=== PATIENT | male | born 1955 | race Caucasian/White ===

== ENCOUNTER 2022-12-01 08:07 | Observation (INO) ==
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
--- NOTE | 2022-11-27 08:15 | History and Physical Report ---
CHIEF COMPLAINT: Right knee pain. HISTORY OF PRESENT ILLNESS: The patient is a 67-year-old gentleman referred by my partner, Dr. Chalo urban, for surgical treatment of his right knee. He has got a several-year history of increasing right k nee pain and discomfort and describes it has gotten worse over time. He does have a history of vascu lar [place] in [place] He had similar procedures performed on left si de in 2008. He has done well from that standpoint, but continued to be bothered by knee pain. He fisher s been through extensive conservative care including injections, which have become less successful ov er time. He has had more difficulty getting around doing things he would like to do. He would like to proceed with surgical management. Of note, the patient has been scheduled previously, but canceled due to elevated hemoglobin A1c level . This has now gone from 8.2 to 7.3 and has been medically optimized. PAST MEDICAL HISTORY: Significant for: 1. Hypertension. 2. Elevated cholesterol. 3. Diabetes x20 years. 4. Obesity, BMI 36. 5. Kidney stones. 6. Vascular stents. 7. Chronic kidney disease, stage III. PAST SURGICAL HISTORY: Includes, 1. Shoulder surgery. 2. Back surgery x2. 3. EGD. 4. Pilonidal cyst excision. 5. Nasal surgery. 6. Cataract surgery. 7. Colonoscopy. 8. Cystoscopy. 9. Oral surgery. 10. Eye surgery. 11. Bilateral lower extremity stents placed, left side 2008, right side 2014. ALLERGIES: SULFA. CURRENT MEDICATIONS: 1. Botox. 2. Tylenol with oxycodone. 3. Pioglitazone. 4. Ramipril. 5. Rybelsus. 6. Simvastatin. 7. Topiramate. 8. Hydrochlorothiazide. 9. Metformin. 10. Multivitamin. 11. Gabapentin. 12. Nexium. 13. Vitamin D3. 14. Baby aspirin. 15. B complex. 16. Valtrex. SOCIAL HISTORY: A 67-year-old male. He lives by himself. He is a traveling musician. He has got a n medical assistant ob gyn to help him to surgery. Two to four drinks per week. He smokes cigars. FAMILY HISTORY: Noncontributory. REVIEW OF SYSTEMS: Significant for diabetes under better control. No chest pain or shortness of darwin ath. No history of DVT or PE. Does have chronic vascular disease as well as stage III kidney diseas e. PHYSICAL EXAMINATION: GENERAL: Shows a pleasant middle-aged male. Looks to be in reasonably good health. HEENT: Benign. NECK: Supple. No lymphadenopathy. LUNGS: Clear to auscultation. HEART: Has a regular rate and rhythm. ABDOMEN: Soft, nontender, nondistended. EXTREMITIES: Grossly neurovascularly intact except as follows. Examination of the right knee reveals the patient ambulates with a bit of a limp. He has got varus a lignment to his knee. He is tender over the medial joint line. Small knee effusion. Range of motio n 5-120. No instability. A little stiffness with hip motion, but no pain. X-RAYS: X-rays of the right knee reveal advanced right knee medial compartment degenerative joint di sease. He has got complete loss of medial joint space. He has got a vascular graft proximally. A single pelvis film shows some fairly mild hip arthritis. ASSESSMENT: 1. A 67-year-old male with multiple medical comorbidities including diabetes, chronic kidney disease , vascular disease in his lower extremities. 2. Gastroesophageal reflux disease. 3. Obesity. 4. Elevated cholesterol. 5. Hypertension with advanced right knee degenerative joint disease. He has failed conservative mary sures. He was scheduled previously, but canceled due to his blood glucose levels. Under much better control now and A1c is down. He would like to proceed with surgical treatment. PLAN: We will take him to the operating room and do a right total knee replacement. The risks and b enefits of this procedure were explained. We will not likely use a tourniquet due to his vascular gr aft. The risks and benefits of procedure were explained. He understands and desires to proceed. In formed consent was obtained. We will have to be careful using NSAID use. We will use insulin sliding scale coverage. He is plann ing to be discharged to home using [facility] program. Job ID: [id number]
[~2022-12-01 08:07] MED LIST: ACETAMINOPHEN 500 MG TAB PO SCH; BUPIVACAINE 0.25% PF 30 ML VIAL ONE; BUPIVACAINE 0.5 % 5 MG/1 ML PF 10ML VIAL ONE; BUPIVACAINE LIPOSOME/PF 266 MG, BUPIVACAINE/EPINEPHRINE 50 ML, SODIUM CHLORIDE 0.9% PF ... INFIL SCH; CeleBREX 200 MG CAP PO SCH; FAMOTIDINE 20 MG TAB PO SCH; LR 500ML BOLUS, THEN 15ML/HR IV SCH; LR 60ML/HR IV SCH; METOCLOPRAMIDE HCL 10 MG TABLET PO SCH; Scopolamine 1 MG TDSY TD SCH; TRANEXAMIC ACID 1,000 MG **IV Intra-op IV SCH; ceFAZolin 2000MG 2,000 MG/15 ML SYR IV SCH
[2022-12-01] MEDS ORDERED: ePHEDrine sulfate 50 MG/ML AMP IV PRN (09:47)
[2022-12-01] MEDS ORDERED: ATROPINE SULFATE 0.1 MG/ML 10ML SYR IV PRN (09:47)
[2022-12-01] MEDS ORDERED: fentaNYL citrate PF 100 MCG/2 ML VIAL IV PRN (09:47)
[2022-12-01] MEDS ORDERED: ONDANSETRON INJ 2 MG/ML 2 ML VIAL IV PRN ×2 (09:47→14:15)
[2022-12-01] MEDS ORDERED: PROPOFOL IV EMULSION 10 MG/ML 20 ML VIAL IV ONE ×3 (10:09)
[2022-12-01] MEDS ORDERED: ONDANSETRON INJ 2 MG/ML 2 ML VIAL ONE (10:10)
--- NOTE | 2022-12-01 10:49 | History & Physical Bridge Note ---
Date of Service December 01, 2022 History & Physical Bridge Note I have examined the patient, reviewed the History & Physical and in the interval since the performance of the History & Physical I have noted the following changes of clinical significance: no changes noted
[2022-12-01] MEDS ORDERED: SODIUM CHLORIDE 0.9% PF 50 ML VIAL ONE (10:58)
[2022-12-01] MEDS ORDERED: BUPIVACAINE LIPOSOME 1.3% 266 MG/20 ML VIAL ONE (10:58)
[2022-12-01] MEDS ORDERED: BUPIVACAINE/EPINEPHRINE 0.25% 1:200,000 30 ML VIAL ONE (10:58)
[2022-12-01] MEDS ORDERED: MIDAZOLAM HCL 1 MG/ML 2ML VIAL ONE (11:09)
[2022-12-01] MEDS ORDERED: ePHEDrine sulfate 50 MG/ML SYR ONE (12:01)
--- NOTE | 2022-12-01 13:20 | Operative Report ---
PG Post Operative Report Pre & Post Diagnosis Operation Date: 12/01/22 10:40 Pre-Op Diagnosis: Right Knee Degenerative Joint Disease Post-Op Diagnosis: Right Knee Degenerative Joint Disease I identified the patient and participated in the time-out.: Yes Procedure Operation Date: 12/01/22 10:40 Actual Procedures p Right Total Knee Arthroplasty(Right) - Mesfin Kaur MD Surgeon Mesfin Kaur MD Optometric Assistant Yasmany Abdalla PA-C Estimated Blood Loss 200 Findings Consistent with Post-Op Diagnosis Operative findings were advanced right knee medial compartment DJD. He had extensive grade 4 [id number] disease primarily the medial compartment. Fixed varus deformity to his knee with a moderate knee joint effusion. 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 This became less responsive conservative care. X-rays reveal advanced medial compartment arthritis. He elected proceed with surgical management. He had been scheduled for surgery before but canceled due to elevated hemoglobin A1c level. He is gotten this under better control now indicated for surgery. He does have a history of vascular grafting to this right leg so we did not use a tourniquet throughout the case to decrease risk of vascular complications. Description of Procedure Operative implants consist of: 1 Biomet Vanguard size 72.5 right posterior stabilized femoral component. 2. Biomet size 79 tibial tray. 3. 10 mm posterior stabilized polyethylene insert. 4. 31 x 8 all Paller patella. The patient was taken the op room, identified, placed on the operating table supine position protectors were properly padded. IV antibiotics tried by anesthesia team. A spinal anesthetic and abductor canal block had provided holding area. Block catheter was placed in a sterile fashion. Right thigh high tourniquet was then placed but not used on the right lower extremity. The right leg was then prepped and draped in usual sterile fashion. An anterior approach of the right knee was then performed through a longitudinal incision centered over the patella. Sharp dissection Through subcutaneous tissue down the extensor mechanism. A medial parapatellar arthrotomy incision was made. Some subperiosteal dissection was carried out medially. The fat pad was dissected from Neath patella tendon. Lateral patellofemoral ligament was released. Patella subluxated laterally and the knee was flexed. The osteophytes taken off distal femur. The ACL PCL then released from distal femur and the tibia subluxated anteriorly. The external tibial alignment jig was then placed in the interface the tibia and adjusted 16 mm medially. Proximal tibial cut was made to remove 2 to 3 mm of bone from the medial side. He did not have a lot of bony wear. The tibia sized to a size 79. Attention drawn the femur. The distal femur stem with a sharp drill. Intramedullary canal was suction. A right 6 degree valgus cutting guide was placed. Distal femoral cutting block w as pinned in place. Distal femoral cut was made to take an additional 3 mm of bone off distal femur. The femur was then sized to a size 72.5. The AP cutting block was pinned parallel to the epicondylar axis which was 3 degrees of external rotation. Anterior cut, anterior chamfer, posterior cut, posterior chamfer cuts were made. The box cutting gait guide was then placed in a just slight lateral and the box cut was made. The knee was flexed. The remnants of the medial and lateral menisci were excised. The osteophytes taken off the posterior aspect the femur. Trial femoral component was placed. The tibial tray was pinned in maximum external rotation and the drill and stem punch used to create defect in proximal tibia for the tibial tray. The knee was then trialed and the 10 mm insert fit most appropriately. Attention drawn the patella. The patella was cleaned of all soft tissues. Patella thickness measured 24 mm in thickness. We cut this down to 14 mm. Was sized to a size 31 patella. The lug holes were drilled for 31 patella. Lateral osteophytes removed. Patella button was placed. Knee was taken through range of motion patella tracked nicely with no thumbs test. Attention drawn to place the permanent components. All trial components were removed. Bone plug was placed in the distal femur limit blood loss. Double batch Palacos G cement was mixed. Biomet Vanguard size 72.5 right posterior stabilized femoral component, size 79 tibial tray, a 10 mm posterior stabilized polyethylene insert, and a 31 x 8 all Paller patella then cemented in place. Knee was brought into full extension till cement hardened. Final cement check was then performed. Pericapsular tissues were injected with total of 100 cc of combination of 20 cc of Exparel, 30 cc normal saline, 50 cc of quarter percent Marcaine with epinephrine. Patient did receive 1 g tranexamic acid. The knee was then irrigated extensively. The extensor mechanism then closed with combination of 1 PDS suture #1 Vicryl suture in a [id number] fashion. Extensor mechanism checked found to be intact and subcutaneous tissue then closed with 2 Dexon suture in a buried interrupted fashion skin was closed skin ceasar. Leg was then cleaned and dried and sterile dressing was Xeroform, 4 fours, sterile ABD pad, sterile cast padding, Kieran bandage were applied. Patient then transferred to the recovery in stable condition. Patient tolerated procedure well and there were no complications. Yasmany Abdalla, my physician health center assistant, was present for the entire procedure. His assistance was essential and required for appropriate patient positioning, prepping and draping, surgical exposure, performing the technical details of the operation, placement the implants, closure of the wound, and placement of the sterile bandage. I attest to the content of the Intraoperative Record and any orders documented therein. Any exceptions are noted below.
--- NOTE | 2022-12-01 13:35 | XRay Report ---
RIGHT KNEE 2 VIEWS History: Right total knee arthroplasty. Degenerative arthritis. Postop. FINDINGS: The patient is status post a right total knee arthroplasty. The hardware is intact. No frac ture or dislocation. Skin ceasar are in place. A distal right superficial femoral artery stent is no christiana IMPRESSION: Right total knee arthroplasty. No evidence for hardware complication. ACT 112: Negative or not required by law. Electronically signed by: Shai Hilton M.D. 12/01/2022 1:33 PM
[2022-12-01] MEDS ORDERED: DEXTROSE 50% 50 ML SYRINGE IV PRN (14:15)
[2022-12-01] MEDS ORDERED: GLUCOSE 10 TAB/TUBE PO PRN (14:15)
[2022-12-01] MEDS ORDERED: GLUCAGON FOR INJ 1 MG VIAL SQ PRN (14:15)
[2022-12-01] MEDS ORDERED: PHARMACY GLYCEMIC MGMT CONSULT PRN (14:15)
[2022-12-01] MEDS ORDERED: GLUCOSE 40% GEL 15 GM TUBE PO PRN (14:15)
[2022-12-01] MEDS ORDERED: METOCLOPRAMIDE HCL INJ 5 MG/ML 2 ML VIAL IV PRN (14:15)
[2022-12-01] MEDS ORDERED: bisacodyL 10 MG SUPP PR PRN (14:15)
[2022-12-01] MEDS ORDERED: HYDROmorphone INJ 0.5 MG/0.5 ML SYR IV PRN (14:15)
[2022-12-01] MEDS ORDERED: ALUMINUM/MAGNESIUM SUSP 30 ML UDC PO PRN (14:15)
[2022-12-01] MEDS ORDERED: NALOXONE HCL 0.4 MG/1 ML VIAL/CARP IV PRN (14:15)
[2022-12-01] MEDS ORDERED: CARBOHYDRATES FOR HYPOGLYCEMIA PO PRN (14:15)
[2022-12-01] MEDS ORDERED: MAGNESIUM HYDROXIDE SUSP 30 ML UDC PO PRN (14:15)
[2022-12-01] MEDS ORDERED: ONABOTULINUMTOXINA 200 UNIT IM SCH (14:15)
[2022-12-01] MEDS: SODIUM CHLORIDE 0.9% 1000ML 1,000 ML IV SCH (14:27)
[2022-12-01] MEDS: Scopolamine CHECK PATCH PLACEMENT SCH (14:34)
[2022-12-01] MEDS: KETOROLAC TROMETHAMINE 15 MG/ML VIAL IV SCH ×2 (14:55→22:54)
[2022-12-01] MEDS: GABAPENTIN 300 MG CAP PO SCH ×2 (14:55→22:54)
--- NOTE | 2022-12-01 14:57 | Anesthesiology Progress Note ---
Date of Service December 01, 2022 Anesthesia Post Procedure Vital Signs Vital Signs: Temp Pulse Pulse Pulse Resp BP Pulse Ox 12/01/22 14:05 36.4 C L 59 L 20 138/72 100 12/01/22 14:30 35.7 C L 61 20 150/65 H 98 12/01/22 13:40 64 17 126/54 L 100 12/01/22 13:30 68 10 L 132/59 L 99 12/01/22 13:50 36.3 C L 61 21 142/61 H 95 12/01/22 13:20 73 12 129/62 100 12/01/22 13:12 36.4 C L 79 19 129/62 100 12/01/22 09:05 36.9 C 65 20 171/80 H 99 O2 Del Method O2 Flow Rate 12/01/22 14:05 Room Air 12/01/22 14:30 Room Air 12/01/22 13:40 Room Air 12/01/22 13:30 Room Air 12/01/22 13:50 Room Air 12/01/22 13:20 Oxymask 4 12/01/22 13:12 Oxymask 4 12/01/22 09:05 Room Air Pain Intensity Right Knee: Pain Intensity: 2 Transfer of Care Handoff Completed per policy Notes Mental Status: alert / awake / arousable and participated in evaluation Patient Amnestic to Procedure: Yes Nausea / Vomiting: adequately controlled Pain: adequately controlled Airway Patency, RR, SpO2: stable & adequate BP & HR: stable & adequate Hydration State: stable & adequate Neuraxial Anesthesia: was administered and sensory block is resolving Anesthetic Complications: no major complications apparent and Pt Satisfied with anesthetic care
--- NOTE | 2022-12-01 15:06 | Pharmacy Report ---
Pharmacy Glycemic Short Note 2 - Date of Service December 01, 2022 - Glycemic Short BSG Results (Last 24 hours): 12/01/22 12/01/22 08:45 13:20 POC Glucose 171 H 158 H OUTPATIENT ANTIDIABETIC REGIMEN: * Metformin 1000mg PO BID * Actos 15mg PO HS * A1c 7.3% 10/18/22 ASSESSMENT: * 67 year old male, s/p right TKA, no steroids received. * PMH type 2 DM, CKD, vascular dx in lower extremities, GERD, Obesity, HL, HTN, DJD. * Pt is maintained on oral antidiabetic agents as an outpatient * Oral agents are not recommended for inpatient use d/t drug interactions, changing PO intake, and difficulty titrating for acute hyper/hypoglycemia. ADA recommends re-initiating outpatient oral agents 1-2 days prior to discharge if/when appropriate if they were held on admission. * Will hold oral agents for admission and utilize SQ basal bolus insulin regimen which is the recommended regimen for inpatient glycemic control. * Will initiate weight based insulin dosing for insulin vielka patient and titrate based on BSG trends. PLAN FOR INPATIENT GLYCEMIC CONTROL: * Hold outpatient oral diabetes medications * Basal insulin * Lantus 20 units SQ x 1 dose now, further dosing tomorrow * Bolus insulin * NovoLog per scale ACHS or Q6hrs while NPO * Goal Range: Low 110 mg/dL - High 140 mg/dL * Correction Factor: 20 mg/dL/unit * Nutritional / Prandial insulin per carb ratio of 1 unit per 6 grams CHO consumed
[2022-12-01] MEDS ORDERED: LANTUS PER UNIT CHARGE SQ ONE (15:15)
[2022-12-01] MEDS: HYDROmorphone HCL 2 MG TAB PO PRN (15:23)
[2022-12-01] MEDS: ACETAMINOPHEN 500 MG TAB PO SCH (16:36)
[2022-12-01] MEDS: ASCORBIC ACID 500 MG TAB PO SCH (16:37)
[2022-12-01] MEDS: INSULIN ASPART PER UNIT CHARGE SC SCH ×2 (17:34→20:39)
[2022-12-01] MEDS ORDERED: TRANEXAMIC ACID / 0.7% NACL 1,000 MG/100 ML BAG IV SCH (19:15)
[2022-12-01] MEDS: ceFAZolin 2000MG 2,000 MG/15 ML SYR IV SCH (20:09)
[2022-12-01] MEDS: ASPIRIN 81 MG ECTAB PO SCH (20:41)
[2022-12-01] MEDS: DOCUSATE SODIUM 100 MG CAP PO SCH (20:42)
[2022-12-01] MEDS ORDERED: PIOGLITAZONE HCL 15 MG TAB PO SCH (21:00)
[2022-12-01] MEDS ORDERED: TOPIRAMATE 100 MG TAB PO SCH (21:00)
[2022-12-01] MEDS ORDERED: SIMVASTATIN 20 MG TAB PO SCH (21:00)
[2022-12-01] MEDS ORDERED: SENNA 8.6 MG TAB PO SCH (21:00)
[2022-12-01] MEDS ORDERED: DOCUSATE SODIUM/SENNA 50/8.6MG TAB PO SCH (21:00)
[2022-12-02] MEDS: SODIUM CHLORIDE 0.9% 1000ML 1,000 ML IV SCH (00:20)
[2022-12-02] MEDS: ACETAMINOPHEN 500 MG TAB PO SCH ×2 (00:21→08:27)
[2022-12-02] MEDS: Scopolamine CHECK PATCH PLACEMENT SCH ×2 (00:21→08:31)
[2022-12-02] MEDS: ceFAZolin 2000MG 2,000 MG/15 ML SYR IV SCH (03:15)
[2022-12-02] MEDS: KETOROLAC TROMETHAMINE 15 MG/ML VIAL IV SCH ×2 (03:15→08:32)
[2022-12-02] MEDS: HYDROmorphone HCL 2 MG TAB PO PRN ×2 (05:31→11:49)
[2022-12-02 06:17] LABS: Hematocrit (blood only) 32.9 % (42.0-52.0); Hemoglobin 11.3 g/dl (14.0-18.0); Mean Corpuscular Hemoglobin 31.7 pg (25.0-34.0); Mean Corpuscular Hgb Conc 34.3 g/dL (32.0-36.0); Mean Corpuscular Volume 92.2 fL (80.0-100.0); Mean Platelet Volume 10.1 fL (9.4-12.4); Platelet Count 209 K/uL (130-400); RDW Coefficient of Variation 13.4 % (11.5-14.5); RDW Standard Deviation 44.7 fL (36.4-46.3); Red Blood Count 3.57 M/uL (4.70-6.10); White Blood Count 7.33 K/ul (4.8-10.8)
[2022-12-02 06:30] LABS: BUN Creatinine Ratio 13.9 (10-20); Calcium 8.7 mg/dl (8.6-10.3); Creatinine Clr Calc Pharmacy 67.3 ml/min; Est GFR (African American) 70.2 ml/min; Est GFR (Non-African American) 60.5 ml/min; Potassium 3.9 mmol/L (3.5-5.1)
--- NOTE | 2022-12-02 07:11 | Progress Notes ---
DATE OF SERVICE: 12/02/2022. SUBJECTIVE: A 67-year-old gentleman, postoperative day 1 from a right knee replacement. He is doing pretty well. He rates his pain at most severe of 5. No chest pain or shortness of breath. Not fee ling dizzy or lightheaded. OBJECTIVE: VITAL SIGNS: Temperature 36.5. Vital signs are stable. GENERAL: Physical examination shows a pleasant middle-aged male. He was walking in the hall[place] whe n I visited him this morning. LUNGS: Clear to auscultation. HEART: Regular rate and rhythm. ABDOMEN: Soft, nontender, nondistended. EXTREMITIES: Grossly neurovascularly intact except as follows. Examination of the right leg reveals the dressing to be clean, dry, and intact. He can dorsiflex and plantarflex his foot appropriately. He is neurologically intact. He can do a straight leg raise. LABORATORY DATA: Hemoglobin 11.3. Hematocrit 32.9. Electrolytes are stable. ASSESSMENT: A 67-year-old gentleman with history of peripheral vascular disease, postop day 1 from a right knee replacement, doing pretty well. His pain is controlled. He is neurologically intact. PLAN: 1. DVT prophylaxis includes thigh-high TEDs, SCDs, and aspirin twice a day. 2. PT/OT, weightbear as tolerated. Right total knee protocol. 3. Pain control, doing okay with current pain regimen. 4. Disposition: Plan to discharge to home with some home health likely later today if he does okay in PT. Job ID: [id number]
[2022-12-02] MEDS: GABAPENTIN 300 MG CAP PO SCH (08:28)
[2022-12-02] MEDS: DOCUSATE SODIUM 100 MG CAP PO SCH (08:28)
[2022-12-02] MEDS: ASPIRIN 81 MG ECTAB PO SCH (08:28)
[2022-12-02] MEDS: ASCORBIC ACID 500 MG TAB PO SCH (08:30)
[2022-12-02] MEDS ORDERED: MULTIVITAMIN TAB PO SCH (09:00)
[2022-12-02] MEDS ORDERED: VITAMIN B COMPLEX TAB PO SCH (09:00)
[2022-12-02] MEDS ORDERED: LANTUS PER UNIT CHARGE SQ SCH (09:00)
[2022-12-02] MEDS ORDERED: hydroCHLOROthiazide 25 MG TAB PO SCH (09:00)
[2022-12-02] MEDS ORDERED: CHOLECALCIFEROL 1,000 UNITS 25 MCG TAB PO SCH (09:00)
[2022-12-02] MEDS ORDERED: PANTOprazole 40 MG TAB PO SCH (09:00)
[2022-12-02] MEDS ORDERED: TAMSULOSIN HCL 0.4 MG CAP PO SCH (09:00)
[2022-12-02] MEDS ORDERED: NON-FORMULARY MEDICATION (Multivitamin tablet) PO SCH (09:00)
[2022-12-02] MEDS: INSULIN ASPART PER UNIT CHARGE SC SCH ×2 (09:16→12:55)
[2022-12-02] MEDS ORDERED: ENALAPRIL MALEATE 10 MG TAB PO SCH (12:45)
[2022-12-02] MEDS ORDERED: LANTUS PER UNIT CHARGE SQ ONE (13:17)
[2022-12-02] MEDS ORDERED: INSULIN ASPART PER UNIT CHARGE SC ONE (13:17)
--- NOTE | 2022-12-07 11:34 | Discharge Summary ---
Date of Service December 07, 2022 Discharge Data Procedures Performed Operation Date: 12/01/22 10:40 Actual Procedures p Right Total Knee Arthroplasty(Right) - Mesfin Kaur MD Hospital Course (1) Status post total right knee replacement: This is a 67 year old patient admitted on 12/01/22 and underwent total knee arthroplasty. He tolerated the procedure well and there were no complications. Transferred to the PACU post op and later to the orthopedic floor for further care. He was given ancef for antibiotic prophylaxis. He was also given SELAM stockings, SCDs, and aspirin for DVT prophylaxis. Hemoglobin, hematocrit, and vital signs were monitored during his hospital stay and remained stable. Did not require any blood transfusions. There were no complications during his hospital stay. By post op day #1 the patient was tolerating a dabetic diet, pain was reasonably controlled with oral pain medicine, and he was participating in physical therapy. On post op day #1 the patient was discharged home and set up with home health care. He was given printed discharge instructions including prescriptions for extra strength tylenol, aspirin, cefadroxil, senokot, zofran, hydromorphone, and flomax. Continue physical therapy, weight bearing as tolerated. Continue SELAM stockings. Follow up approximately 2 weeks post op or sooner if there are problems or concerns. Coding Level of Care Code None Diagnoses Status post total right knee replacement Z96.651
== END 2022-12-02 13:18 | disposition home health service (06) ==
LOC: 3E 08:07 → ASU 08:07
DX: Z79.82 Long term (current) use of aspirin; Z79.899 Other long term (current) drug therapy; I99.9 Unspecified disorder of circulatory system; Z20.822 Contact with and (suspected) exposure to COVID-19; N18.30 Chronic kidney disease, stage 3 unspecified; E11.22 Type 2 diabetes mellitus with diabetic chronic kidney disease; Z79.84 Long term (current) use of oral hypoglycemic drugs; F17.290 Nicotine dependence, other tobacco product, uncomplicated; Z88.2 Allergy status to sulfonamides; M17.11 Unilateral primary osteoarthritis, right knee